=== PATIENT | female | born 1985 | race Caucasian/White ===

== ENCOUNTER 2022-02-25 16:29 | Emergency (ER) | payer MEDICAID ==
[~2022-02-25] VITALS: Ht 157.5 cm; Wt 62.0 kg
[2022-02-25] MEDS ORDERED: TETANUS, DIPHTHERIA, PERTUSSIS VAC/PF 0.5ML (>10YR OLD) IM ONE (19:45)
[2022-02-25] MEDS ORDERED: ACETAMINOPHEN 325MG TABLET PO ONE (19:45)
[2022-02-25] MEDS ORDERED: AMOXICILLIN/POTASSIUM CLAVULANATE 875/125MG TAB PO ONE (20:00)
[2022-02-25] MEDS ORDERED: AMOX-424 MT (20:53)
[2022-02-25 21:31] VITALS: BP 130/76
== END 2022-02-25 21:35 | disposition home or self-care (01) ==
LOC: ER 16:29
DX: S51.052A Open bite, left elbow, initial encounter (principal); M25.522 Pain in left elbow; W54.0XXA Bitten by dog, initial encounter; Y93.89 Activity, other specified; Y92.89 Other specified places as the place of occurrence of the external cause; Y99.8 Other external cause status
CPT/HCPCS: 73070; 81025; 90471; 90715; 99283